=== PATIENT | male | born 1955 | race Caucasian/White ===

== ENCOUNTER 2019-02-22 12:44 | Emergency (ER) | payer BC, MEDICARE, OTHER ==
[2019-02-22] MEDS ORDERED: Acetaminophen 500 MG Tab PO ONE (13:27)
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
== END 2019-02-22 13:59 | disposition home or self-care (01) ==
LOC: JP.ED 12:44
DX: S06.0X1A Concussion with loss of consciousness of 30 minutes or less, initial encounter (principal); S00.01XA Abrasion of scalp, initial encounter; Z79.82 Long term (current) use of aspirin; W01.198A Fall on same level from slipping, tripping and stumbling with subsequent striking against other object, initial encounter
CPT/HCPCS: 99283; A9270